=== PATIENT | male | born 1980 | race Caucasian/White ===

== ENCOUNTER 2022-09-21 16:07 | Emergency (ER) | payer BC ==
[2022-09-21] MEDS ORDERED: Lidocaine 1% w/Epinephrine 1:100K 20 ML VIAL ONE (16:35)
[2022-09-21] MEDS ORDERED: Bacitracin 1 PK ONE (16:56)
== END 2022-09-21 17:16 | disposition home or self-care (01) ==
LOC: NAV ERS 16:07
DX: S81.012A Laceration without foreign body, left knee, initial encounter (principal); F17.210 Nicotine dependence, cigarettes, uncomplicated; W29.3XXA Contact with powered garden and outdoor hand tools and machinery, initial encounter
CPT/HCPCS: 12002